=== PATIENT | female | born 1970 | race Two or more races ===

== ENCOUNTER 2017-06-18 21:03 | Emergency (ER) | payer MEDICAID, OTHER ==
[~2017-06-18] VITALS: Ht 172.7 cm; Wt 72.6 kg
[2017-06-18 21:11] VITALS: BP 131/75
--- NOTE | 2017-06-18 21:17 | NUR ---
SERA AT BEDSIDE FOR ASSESSMENT
[2017-06-18] MEDS ORDERED: ACETAMINOPHEN 325 MG TABLET PO STA (21:19)
[2017-06-18] MEDS ORDERED: IBUPROFEN 600 MG TABLET PO ONE ×2 (21:29→21:30)
[2017-06-18] MEDS ORDERED: ACETAMINOPHEN 325 MG TABLET ONE (21:29)
== END 2017-06-18 21:39 | disposition home or self-care (01) ==
LOC: ER 21:06
DX: J06.9 Acute upper respiratory infection, unspecified (principal)
CPT/HCPCS: 99283; A4606; Z7610